=== PATIENT | female | born 1965 | race Caucasian/White ===

== ENCOUNTER 2021-10-11 18:32 | Emergency (ER) | payer SELFPAY ==
[~2021-10-11] VITALS: Ht 172.7 cm; Wt 93.0 kg
[2021-10-11] MEDS ORDERED: HYDROCODONE/APAP 5MG-325MG TAB PO ONE (19:00)
[2021-10-11] MEDS ORDERED: IBUPROFEN 600 MG TAB PO STA (19:04)
[2021-10-11] MEDS ORDERED: IBUPROFEN600 MG PO (19:10)
== END 2021-10-11 19:25 | disposition home or self-care (01) ==
LOC: ER 18:52
DX: E11.42 Type 2 diabetes mellitus with diabetic polyneuropathy (principal); E11.65 Type 2 diabetes mellitus with hyperglycemia; I10 Essential (primary) hypertension; M54.9 Dorsalgia, unspecified; G89.29 Other chronic pain
CPT/HCPCS: 36415; 82948; 99283